=== PATIENT | female | born 1950 | race Hispanic/Latino ===

== ENCOUNTER 2024-06-13 16:13 | Emergency (ER) | payer OTHER ==
[~2024-06-13] VITALS: Ht 152.4 cm; Wt 49.9 kg
[2024-06-13 17:00] LABS: BASOPHILS % 0.3 % (0.0-1.0); EOSINOPHILS # (AUTO) 0.1 (0.0-0.4); EOSINOPHILS % 0.4 % (0.0-6.0); HEMATOCRIT 33.5 % (34.2-44.1); HEMOGLOBIN 11.3 g/dL (12.0-16.0); LYMPHOCYTES % 7.3 % (18.0-39.1); MEAN CORPUSCULAR HGB CONC 33.7 g/dL (31-35); MEAN CORPUSCULAR VOLUME 83.1 fL (81-99); MONOCYTES # (AUTO) 0.9 (0.2-0.8); MONOCYTES % 6.6 % (4.4-11.3); NEUTROPHILS # (AUTO) 11.8 (2.1-6.9); PLATELET COUNT 376 x10e3/uL (140-360); RED BLOOD COUNT 4.03 x10e6/uL (3.6-5.1); RED CELL DISTRIBUTION WIDTH 13.5 % (11.7-14.4); WHITE BLOOD COUNT 13.85 x10e3/uL (4.8-10.8)
[2024-06-13 17:06] LABS: BILIRUBIN,URINE NEGATIVE (NEGATIVE); CLARITY,URINE CLEAR (CLEAR); COLOR,URINE YELLOW (YELLOW); GLUCOSE, URINE 2+ (NEGATIVE); KETONES,URINE 2+ (NEGATIVE); LEUKOCYTE ESTERASE ,URINE NEGATIVE (NEGATIVE); NITRITE,URINE POSITIVE (NEGATIVE); PH,URINE 5.5 (5 - 7); PROTEIN,URINE DIPSTICK 2+ (NEGATIVE); URINE UROBILINOGEN 0.2 mg/dL (0.2 - 1)
[2024-06-13 17:09] LABS: BACTERIA,URINE MANY /HPF; EPITHELIAL CELLS,URINE MANY /LPF
[2024-06-13 17:23] LABS: ALBUMIN 3.9 g/dL (3.5-5.0); ALBUMIN/GLOBULIN RATIO 1.3 (0.8-2.0); ANION GAP 16.1 mmol/L (8-16); BILIRUBIN,TOTAL 0.4 mg/dL (0.2-1.2); CALCIUM 8.6 mg/dL (8.4-10.2); CREATININE, SERUM 0.84 mg/dL (0.57-1.11)
[2024-06-13 17:26] LABS: POTASSIUM 3.1 mmol/L (3.5-5.1)
[2024-06-13] MEDS: SODIUM CHLORIDE 0.9% 1000ML 1,000 ML IV STA (17:41)
[2024-06-13] MEDS: ACETAMINOPHEN 325 MG TAB PO STA (17:42)
[2024-06-13 18:10] VITALS: TEMP 98.5
[2024-06-13] MEDS: ONDANSETRON HCL INJ 2MG/ML 2ML 2 MG/ML VIAL IV PRN (18:17)
[2024-06-13 19:00] VITALS: PULSE 87; RESP 16; O2SAT 99
[2024-06-13] MEDS ORDERED: GLYCERIN1 EACH PR (19:29)
[2024-06-13] MEDS ORDERED: CIPRO500 MG PO (19:29)
== END 2024-06-13 19:49 | disposition home or self-care (01) ==
LOC: ER 16:27
DX: R30.0 Dysuria (principal); N39.0 Urinary tract infection, site not specified; K57.32 Diverticulitis of large intestine without perforation or abscess without bleeding; K59.00 Constipation, unspecified; R11.2 Nausea with vomiting, unspecified
CPT/HCPCS: 36415; 74177; 80053; 81001; 83605; 83690; 85025; 87040; 87086; 99284; J2405; J2543; J7030

== ENCOUNTER 2024-06-15 11:50 | Inpatient (IN) | payer MEDICARE, OTHER ==
[~2024-06-15] VITALS: Ht 152.4 cm; Wt 49.9 kg
[2024-06-15 11:50] VITALS: TEMP 98.2
[~2024-06-15 11:50] MED LIST: CIPRO500 MG PO; GLYCERIN1 EACH PR
[2024-06-15 12:52] LABS: BASOPHILS % 0.3 % (0.0-1.0); EOSINOPHILS % 0.3 % (0.0-6.0); HEMATOCRIT 34.4 % (34.2-44.1); HEMOGLOBIN 11.6 g/dL (12.0-16.0); LYMPHOCYTES # (AUTO) 0.6 (1.0-3.2); LYMPHOCYTES % 4.2 % (18.0-39.1); MEAN CORPUSCULAR HEMOGLOBIN 27.9 pg (28-32); MEAN CORPUSCULAR HGB CONC 33.7 g/dL (31-35); MEAN CORPUSCULAR VOLUME 82.7 fL (81-99); MONOCYTES # (AUTO) 0.8 (0.2-0.8); MONOCYTES % 6.1 % (4.4-11.3); NEUTROPHILS # (AUTO) 11.8 (2.1-6.9); NEUTROPHILS % 88.8 % (38.7-80.0); PLATELET COUNT 411 x10e3/uL (140-360); RED BLOOD COUNT 4.16 x10e6/uL (3.6-5.1); RED CELL DISTRIBUTION WIDTH 13.4 % (11.7-14.4); WHITE BLOOD COUNT 13.29 x10e3/uL (4.8-10.8)
[2024-06-15] MEDS: Morphine 2mg Syringe 2 MG/ML SYR IV ONE ×2 (12:55→16:40)
[2024-06-15] MEDS: SODIUM CHLORIDE 0.9% 1000ML 1,000 ML IV ONE (12:55)
[2024-06-15] MEDS: METOCLOPRAMIDE HCL 10 MG/2ML VIAL IV ONE (12:55)
[2024-06-15] MEDS ORDERED: IOPAMIDOL 370 MG/ML 100 ML INFUS..BTL INJ ONE (13:01)
[2024-06-15 13:06] LABS: ALBUMIN 3.9 g/dL (3.5-5.0); ALBUMIN/GLOBULIN RATIO 1.1 (0.8-2.0); ANION GAP 15.8 mmol/L (8-16); BILIRUBIN,TOTAL 0.3 mg/dL (0.2-1.2); CALCIUM 8.6 mg/dL (8.4-10.2); CREATININE, SERUM 0.78 mg/dL (0.57-1.11); TOTAL PROTEIN 7.3 g/dL (6.5-8.1)
[2024-06-15 13:09] LABS: POTASSIUM 2.8 mmol/L (3.5-5.1)
[2024-06-15] MEDS: KCL 20 MEQ PACKET/ ORAL SOLN PO ONE (13:33)
[2024-06-15] MEDS: POTASSIUM CHLORIDE 20MEQ/100ML 100 ML IV SCH (13:33)
[2024-06-15 14:16] LABS: COLOR,URINE YELLOW (YELLOW)
[2024-06-15 14:17] LABS: BILIRUBIN,URINE NEGATIVE (NEGATIVE); CLARITY,URINE CLOUDY (CLEAR); GLUCOSE, URINE 1+ (NEGATIVE); KETONES,URINE TRACE (NEGATIVE); LEUKOCYTE ESTERASE ,URINE NEGATIVE (NEGATIVE); NITRITE,URINE NEGATIVE (NEGATIVE); PH,URINE 6 (5 - 7); PROTEIN,URINE DIPSTICK NEGATIVE (NEGATIVE); URINE UROBILINOGEN 0.2 mg/dL (0.2 - 1)
[2024-06-15 14:18] LABS: BACTERIA,URINE FEW /HPF; EPITHELIAL CELLS,URINE FEW /LPF; RBC,URINE 21-50 /HPF (0-5)
[2024-06-15] MEDS: SODIUM CHLORIDE 0.9% 1000ML 1,000 ML IV SCH (16:40)
[2024-06-15] MEDS: METRONIDAZOLE 500MG/NS 100ML 100 ML IV SCH (17:12)
[2024-06-15] MEDS: CIPROFLOXACIN 400 MG/D5W 200ML 200 ML IV SCH (17:12)
[2024-06-15] MEDS ORDERED: ALBUTEROL/IPRATROPIUM 3 ML NEB NEB PRN (17:15)
[2024-06-15 17:27] VITALS: PULSE 91; RESP 18
[2024-06-15 18:42] VITALS: BP 148/83; PULSE 99; RESP 18; TEMP 98.4; O2SAT 98
[2024-06-15 20:00] VITALS: BP 140/82; PULSE 99; RESP 22; TEMP 97.7; O2SAT 99
[2024-06-15] MEDS ORDERED: LOSARTAN POTAS100 MG PO (20:34)
[2024-06-15] MEDS ORDERED: OZEMPIC2 MG/0.75 INJ (20:47)
[2024-06-15] MEDS ORDERED: ROSUVASTATIN CAL5 MG PO (20:47)
[2024-06-15] MEDS ORDERED: METHOCARBAMOL750 MG PO (20:47)
[2024-06-15] MEDS ORDERED: METOPROLOL TAR100 MG PO (20:47)
[2024-06-15] MEDS ORDERED: OMEPRAZOLE40 MG PO (20:47)
[2024-06-15] MEDS ORDERED: ONDANSETRON ODT4 MG PO (20:47)
[2024-06-15] MEDS: CALCIUM CARBONATE/VITAMIN D3 500 MG TAB PO SCH (22:24)
[2024-06-15] MEDS: ONDANSETRON HCL INJ 2MG/ML 2ML 2 MG/ML VIAL IV PRN (23:55)
[2024-06-15] MEDS: MELATONIN 3 MG TAB PO PRN (23:57)
[2024-06-16] VITALS: BP 150/76; PULSE 90; RESP 18; TEMP 97.7; O2SAT 99
[2024-06-16] MEDS: Morphine 2mg Syringe 2 MG/ML SYR IV PRN (00:09)
[2024-06-16 04:00] VITALS: BP 153/87; PULSE 89; RESP 18; TEMP 96.2; O2SAT 99
[2024-06-16 05:20] LABS: BASOPHILS # (AUTO) 0.1 (0.0-0.1); BASOPHILS % 0.6 % (0.0-1.0); EOSINOPHILS # (AUTO) 0.2 (0.0-0.4); EOSINOPHILS % 2.7 % (0.0-6.0); HEMATOCRIT 29.7 % (34.2-44.1); LYMPHOCYTES # (AUTO) 1.8 (1.0-3.2); LYMPHOCYTES % 21.3 % (18.0-39.1); MEAN CORPUSCULAR HEMOGLOBIN 27.9 pg (28-32); MEAN CORPUSCULAR HGB CONC 33.7 g/dL (31-35); MEAN CORPUSCULAR VOLUME 82.7 fL (81-99); MONOCYTES # (AUTO) 0.9 (0.2-0.8); MONOCYTES % 10.6 % (4.4-11.3); NEUTROPHILS # (AUTO) 5.6 (2.1-6.9); NEUTROPHILS % 64.6 % (38.7-80.0); PLATELET COUNT 323 x10e3/uL (140-360); RED BLOOD COUNT 3.59 x10e6/uL (3.6-5.1); RED CELL DISTRIBUTION WIDTH 13.5 % (11.7-14.4); WHITE BLOOD COUNT 8.64 x10e3/uL (4.8-10.8)
[2024-06-16 06:01] LABS: ALANINE AMINOTRANSFERASE 13 IU/L (0-55); ALBUMIN 3.1 g/dL (3.5-5.0); ALBUMIN/GLOBULIN RATIO 1.2 (0.8-2.0); ALKALINE PHOSPHATASE 57 IU/L (40-150); ANION GAP 14.2 mmol/L (8-16); BILIRUBIN,TOTAL 0.2 mg/dL (0.2-1.2); BLOOD UREA NITROGEN < 5 mg/dL (7-26); CALCIUM 7.6 mg/dL (8.4-10.2); CARBON DIOXIDE 18 mmol/L (22-29); CHLORIDE 105 mmol/L (98-107); CREATININE, SERUM 0.66 mg/dL (0.57-1.11); EST GLOMERULAR FILTRATION RATE 93 ML/MIN (>=60); GLUCOSE 87 mg/dL (74-118); SODIUM 134 mmol/L (136-145); TOTAL PROTEIN 5.7 g/dL (6.5-8.1)
[2024-06-16 06:02] LABS: BUN/CREATININE RATIO 8 (6-25); POTASSIUM 3.2 mmol/L (3.5-5.1)
[2024-06-16 08:00] VITALS: BP 147/76; PULSE 83; RESP 17; TEMP 97.7; O2SAT 98
[2024-06-16] MEDS: ACETAMINOPHEN 325 MG TAB PO PRN (12:39)
[2024-06-16 15:28] VITALS: BP 147/76; PULSE 83; RESP 17; TEMP 97.7; O2SAT 98
[2024-06-16 16:00] VITALS: BP 177/84; PULSE 90; RESP 18; TEMP 97.6; O2SAT 98
[2024-06-16] MEDS: ENOXAPARIN SOD INJ 40 MG/0.4 ML SYR SC SCH (17:00)
[2024-06-16 20:00] VITALS: BP 159/86; PULSE 93; RESP 20; TEMP 97.6; O2SAT 100
[2024-06-16] MEDS: Morphine 4mg INJECTION 4 MG/ML INJ IV PRN (21:35)
[2024-06-16] MEDS: PROMETHAZINE 12.5MG/ NACL 0.9% 12.5 MG/50 ML BAG IV PRN (21:37)
[2024-06-17] VITALS (10 sets, daily range): BP systolic 118–166; BP diastolic 61–96; PULSE 80–100; RESP 16–20; TEMP 97.6–98.6; O2SAT 96–100
[2024-06-17 01:23] LABS: % IRON SATURATION 12 % (15-50); IRON 28 ug/dL (50-170); TOTAL IRON BINDING CAPACITY 235 ug/dL (261-478); TRANSFERRIN 168 mg/dL (180-382)
[2024-06-17] MEDS: METOCLOPRAMIDE HCL 10 MG/2ML VIAL IV SCH (01:28)
[2024-06-17] MEDS: Morphine 4mg INJECTION 4 MG/ML INJ IV ONE (01:30)
[2024-06-17 07:21] LABS: ANION GAP 12.5 mmol/L (8-16); BLOOD UREA NITROGEN < 5 mg/dL (7-26); CALCIUM 7.7 mg/dL (8.4-10.2); CARBON DIOXIDE 20 mmol/L (22-29); CHLORIDE 104 mmol/L (98-107); CREATININE, SERUM 0.67 mg/dL (0.57-1.11); EST GLOMERULAR FILTRATION RATE 92 ML/MIN (>=60); GLUCOSE 79 mg/dL (74-118); SODIUM 134 mmol/L (136-145)
[2024-06-17 07:33] LABS: BUN/CREATININE RATIO 7 (6-25)
[2024-06-17] MEDS: ONDANSETRON HCL INJ 2MG/ML 2ML 2 MG/ML VIAL IV PRN (07:33)
[2024-06-17 07:36] LABS: POTASSIUM 2.5 mmol/L (3.5-5.1)
[2024-06-17] MEDS: POTASSIUM CHLORIDE 20MEQ/100ML 100 ML IV SCH (10:53)
[2024-06-17 12:59] LABS: MAGNESIUM 1.4 MG/DL (1.3-2.1); PHOSPHORUS 1.7 MG/DL (2.3-4.7)
[2024-06-17 13:05] LABS: POTASSIUM 2.8 mmol/L (3.5-5.1)
[2024-06-17] MEDS: POTASSIUM CHLORIDE 20MEQ/100ML 100 ML IV STA (18:11)
[2024-06-17] MEDS: POTASSIUM PHOSPHATE 15 MM in SODIUM CHLORIDE 0.9% 250ML 250 ML IV ONE (20:47)
[2024-06-17] MEDS: METOPROLOL TARTRATE INJ 1 MG/ML VIAL IV PRN (20:58)
[2024-06-18] VITALS (10 sets, daily range): BP systolic 143–160; BP diastolic 79–88; PULSE 95–109; RESP 16–20; TEMP 97.5–98.6; O2SAT 95–100
[2024-06-18 06:48] LABS: ANION GAP 13.9 mmol/L (8-16); BLOOD UREA NITROGEN < 5 mg/dL (7-26); CALCIUM 7.6 mg/dL (8.4-10.2); CARBON DIOXIDE 19 mmol/L (22-29); CHLORIDE 104 mmol/L (98-107); CREATININE, SERUM 0.66 mg/dL (0.57-1.11); EST GLOMERULAR FILTRATION RATE 93 ML/MIN (>=60); GLUCOSE 93 mg/dL (74-118); MAGNESIUM 1.3 MG/DL (1.3-2.1); PHOSPHORUS 1.9 MG/DL (2.3-4.7); SODIUM 134 mmol/L (136-145)
[2024-06-18 06:50] LABS: BUN/CREATININE RATIO 8 (6-25); POTASSIUM 2.9 mmol/L (3.5-5.1)
[2024-06-18 08:41] LABS: CLARITY,URINE CLEAR (CLEAR); COLOR,URINE YELLOW (YELLOW); GLUCOSE, URINE NEGATIVE (NEGATIVE); KETONES,URINE 1+ (NEGATIVE); LEUKOCYTE ESTERASE ,URINE NEGATIVE (NEGATIVE); NITRITE,URINE NEGATIVE (NEGATIVE); PH,URINE 5.5 (5 - 7); PROTEIN,URINE DIPSTICK NEGATIVE (NEGATIVE)
[2024-06-18 08:42] LABS: BACTERIA,URINE FEW /HPF; BILIRUBIN,URINE NEGATIVE (NEGATIVE); EPITHELIAL CELLS,URINE FEW /LPF; TRANSITIONAL EPI CELLS,URINE RARE; URINE UROBILINOGEN 0.2 mg/dL (0.2 - 1); WBC,URINE (MAN) 0-5 /HPF (0-5)
[2024-06-18] MEDS ORDERED: POTASSIUM PHOSPHATE 15 MM in SODIUM CHLORIDE 0.9% 250ML 250 ML IV ONE (08:45)
[2024-06-18] MEDS: NITROFURANTOIN MACROCRYSTALS 100 MG CAP PO SCH (09:58)
[2024-06-18] MEDS: POTASSIUM CHLORIDE 20 MEQ TAB CR PO STA (09:58)
[2024-06-18] MEDS: IRON SUCROSE 100 MG in SODIUM CHLORIDE 0.9% 100 ML IV SCH (09:58)
[2024-06-18] MEDS: POTASSIUM CHLORIDE 20 MEQ TAB CR PO ONE (10:00)
[2024-06-18] MEDS: POTASSIUM PHOSPHATE 15 MM in SODIUM CHLORIDE 0.9% 250ML 250 ML IV ONE (13:28)
[2024-06-19] VITALS (10 sets, daily range): BP systolic 144–160; BP diastolic 79–91; PULSE 87–99; RESP 18–21; TEMP 97.8–98.3; O2SAT 96–100
[2024-06-19] MEDS: PROMETHAZINE 12.5MG/ NACL 0.9% 12.5 MG/50 ML BAG IV PRN (00:07)
[2024-06-19 05:44] LABS: BLOOD UREA NITROGEN < 5 mg/dL (7-26); PHOSPHORUS 2.5 MG/DL (2.3-4.7)
[2024-06-19 06:06] LABS: ANION GAP 11.8 mmol/L (8-16); CALCIUM 7.1 mg/dL (8.4-10.2); CARBON DIOXIDE 23 mmol/L (22-29); CHLORIDE 106 mmol/L (98-107); CREATININE, SERUM 0.63 mg/dL (0.57-1.11); EST GLOMERULAR FILTRATION RATE 94 ML/MIN (>=60); GLUCOSE 86 mg/dL (74-118); MAGNESIUM 1.3 MG/DL (1.3-2.1); SODIUM 138 mmol/L (136-145)
[2024-06-19 06:45] LABS: BUN/CREATININE RATIO 8 (6-25)
[2024-06-19 06:46] LABS: POTASSIUM 2.8 mmol/L (3.5-5.1)
[2024-06-19] MEDS: POTASSIUM CHLORIDE 20 MEQ TAB CR PO ONE (09:12)
[2024-06-20] VITALS (11 sets, daily range): BP systolic 147–165; BP diastolic 83–94; PULSE 83–100; RESP 18–20; TEMP 98.1–98.6; O2SAT 95–100
[2024-06-20] MEDS ORDERED: DICYCLOMINE HCL 20 MG TAB ONE (03:34)
[2024-06-20] MEDS: DICYCLOMINE HCL 20 MG TAB PO STA (03:40)
[2024-06-20] MEDS: DICYCLOMINE HCL 20 MG TAB PO SCH (08:31)
[2024-06-20 08:34] LABS: ANION GAP 12.9 mmol/L (8-16); BLOOD UREA NITROGEN < 5 mg/dL (7-26); CALCIUM 7.6 mg/dL (8.4-10.2); CARBON DIOXIDE 22 mmol/L (22-29); CHLORIDE 103 mmol/L (98-107); CREATININE, SERUM 0.62 mg/dL (0.57-1.11); EST GLOMERULAR FILTRATION RATE 94 ML/MIN (>=60); GLUCOSE 93 mg/dL (74-118); MAGNESIUM 1.4 MG/DL (1.3-2.1); PHOSPHORUS 2.1 MG/DL (2.3-4.7); SODIUM 135 mmol/L (136-145)
[2024-06-20 08:36] LABS: BUN/CREATININE RATIO 8 (6-25)
[2024-06-20 08:37] LABS: POTASSIUM 2.9 mmol/L (3.5-5.1)
[2024-06-20] MEDS: POTASSIUM CHLORIDE 20 MEQ TAB CR PO SCH ×2 (10:57→16:45)
[2024-06-20] MEDS: POTASSIUM PHOSPHATE 15 MM in SODIUM CHLORIDE 0.9% 250ML 250 ML IV ONE (12:16)
[2024-06-20 14:06] LABS: MAGNESIUM 1.2 MG/DL (1.3-2.1); PHOSPHORUS 2.6 MG/DL (2.3-4.7); POTASSIUM 3.5 mmol/L (3.5-5.1)
[2024-06-20 19:28] LABS: WBC,FECAL (FECAL LACTOFERRIN) POSITIVE (NEGATIVE)
[2024-06-20 19:30] LABS: CDIFF AG QUIK CHEK **POSITIVE** (NEGATIVE); CDIFF TOX QUIK CHEK NEGATIVE (NEGATIVE)
[2024-06-21] VITALS (11 sets, daily range): BP systolic 141–171; BP diastolic 72–93; PULSE 76–95; RESP 17–19; TEMP 97.4–98.6; O2SAT 95–100
[2024-06-21] MEDS ORDERED: VANCOMYCIN HCL 125 MG CAPSULE PO SCH
[2024-06-21] MEDS: VANCOMYCIN HCL 125 MG CAPSULE PO SCH (00:06)
[2024-06-21] MEDS: MECLIZINE HCL 12.5 MG TAB PO ONE (00:07)
[2024-06-21 06:18] LABS: ANION GAP 12.3 mmol/L (8-16); BLOOD UREA NITROGEN < 5 mg/dL (7-26); CALCIUM 7.8 mg/dL (8.4-10.2); CARBON DIOXIDE 20 mmol/L (22-29); CHLORIDE 104 mmol/L (98-107); EST GLOMERULAR FILTRATION RATE 95 ML/MIN (>=60); GLUCOSE 95 mg/dL (74-118); MAGNESIUM 1.4 MG/DL (1.3-2.1); PHOSPHORUS 2.3 MG/DL (2.3-4.7); SODIUM 133 mmol/L (136-145)
[2024-06-21 06:20] LABS: BUN/CREATININE RATIO 8 (6-25); POTASSIUM 3.3 mmol/L (3.5-5.1)
[2024-06-21] MEDS: MECLIZINE HCL 12.5 MG TAB PO SCH (09:23)
[2024-06-21] MEDS: POTASSIUM CHLORIDE 20 MEQ TAB CR PO ONE (12:12)
[2024-06-21] MEDS ORDERED: CALCIUM CARBONATE 500 MG CHEWABLE TABS PO SCH (15:00)
[2024-06-21] MEDS: CEPACOL SORE THROAT LOZENGES PO PRN (17:36)
[2024-06-21] MEDS: POTASSIUM PHOSPHATE 15 MM in SODIUM CHLORIDE 0.9% 250ML 250 ML IV ONE (18:53)
[2024-06-22] VITALS (11 sets, daily range): BP systolic 131–160; BP diastolic 68–93; PULSE 85–95; RESP 17–18; TEMP 97.6–98.6; O2SAT 96–100
[2024-06-22 06:16] LABS: BASOPHILS % 0.6 % (0.0-1.0); EOSINOPHILS # (AUTO) 0.2 (0.0-0.4); HEMOGLOBIN 9.5 g/dL (12.0-16.0); LYMPHOCYTES # (AUTO) 1.5 (1.0-3.2); LYMPHOCYTES % 22.6 % (18.0-39.1); MEAN CORPUSCULAR HEMOGLOBIN 27.6 pg (28-32); MEAN CORPUSCULAR HGB CONC 32.8 g/dL (31-35); MEAN CORPUSCULAR VOLUME 84.3 fL (81-99); MONOCYTES # (AUTO) 0.9 (0.2-0.8); NEUTROPHILS % 59.9 % (38.7-80.0); PLATELET COUNT 382 x10e3/uL (140-360); RED BLOOD COUNT 3.44 x10e6/uL (3.6-5.1); RED CELL DISTRIBUTION WIDTH 14.7 % (11.7-14.4); WHITE BLOOD COUNT 6.64 x10e3/uL (4.8-10.8)
[2024-06-22 06:48] LABS: ALANINE AMINOTRANSFERASE 78 IU/L (0-55); ALBUMIN/GLOBULIN RATIO 1.3 (0.8-2.0); ALKALINE PHOSPHATASE 47 IU/L (40-150); ANION GAP 14.6 mmol/L (8-16); BILIRUBIN,TOTAL 0.3 mg/dL (0.2-1.2); BLOOD UREA NITROGEN < 5 mg/dL (7-26); CALCIUM 8.1 mg/dL (8.4-10.2); CARBON DIOXIDE 21 mmol/L (22-29); CHLORIDE 102 mmol/L (98-107); CREATININE, SERUM 0.63 mg/dL (0.57-1.11); EST GLOMERULAR FILTRATION RATE 94 ML/MIN (>=60); GLUCOSE 90 mg/dL (74-118); LIPASE 109 U/L (8-78); POTASSIUM 3.6 mmol/L (3.5-5.1); SODIUM 134 mmol/L (136-145); TOTAL PROTEIN 5.4 g/dL (6.5-8.1)
[2024-06-22 06:52] LABS: BUN/CREATININE RATIO 8 (6-25)
[2024-06-22] MEDS: MECLIZINE HCL 12.5 MG TAB PO SCH (09:14)
[2024-06-22] MEDS: POTASSIUM CHLORIDE 20 MEQ TAB CR PO ONE (11:33)
[2024-06-22] MEDS: CHOLESTYRAMINE 4 GM PACKET PO SCH (11:35)
[2024-06-23 03:03] VITALS: BP 150/84; PULSE 89; RESP 18; TEMP 97.9; O2SAT 100
[2024-06-23 06:34] VITALS: PULSE 90; RESP 20; O2SAT 96
[2024-06-23 09:20] VITALS: BP 156/91; PULSE 91; RESP 20; TEMP 98.2; O2SAT 99
[2024-06-23 09:58] VITALS: BP 156/91; PULSE 91; RESP 20; TEMP 98.2; O2SAT 99
[2024-06-23 10:14] LABS: ANION GAP 11.6 mmol/L (8-16); BLOOD UREA NITROGEN < 5 mg/dL (7-26); CALCIUM 8.6 mg/dL (8.4-10.2); CARBON DIOXIDE 21 mmol/L (22-29); CHLORIDE 100 mmol/L (98-107); CREATININE, SERUM 0.63 mg/dL (0.57-1.11); EST GLOMERULAR FILTRATION RATE 94 ML/MIN (>=60); GLUCOSE 126 mg/dL (74-118); POTASSIUM 3.6 mmol/L (3.5-5.1); SODIUM 129 mmol/L (136-145)
[2024-06-23 10:16] LABS: BUN/CREATININE RATIO 8 (6-25)
[2024-06-23 11:56] VITALS: BP 162/83; PULSE 92; RESP 18; TEMP 97.9; O2SAT 97
[2024-06-23] MEDS ORDERED: SORE THROAT LO1 EAC3 PO (12:49)
[2024-06-23] MEDS ORDERED: MECLIZINE HCL12.5 MG PO (12:49)
[2024-06-23] MEDS ORDERED: COLESTIPOL HCL1 GM PO (12:49)
[2024-06-23] MEDS ORDERED: POTASSIUM CHLO10 ME1 PO (12:49)
[2024-06-23] MEDS ORDERED: DICYCLOMINE HCL20 MG PO (12:49)
[2024-06-23] MEDS ORDERED: PANTOPRAZOLE SO40 MG PO (12:49)
[2024-06-23] MEDS ORDERED: OYSTER SHELL 51 EAC1 PO (12:49)
[2024-06-23] MEDS ORDERED: ONDANSETRON ODT4 MG PO (12:49)
[2024-06-23] MEDS ORDERED: REGLAN5 MG PO (12:49)
[2024-06-23] MEDS ORDERED: VANCOMYCIN HCL125 MG PO (12:49)
[2024-06-23] MEDS ORDERED: METRONIDAZOLE500 MG PO (12:49)
== END 2024-06-23 14:30 | disposition home or self-care (01) | DRG 392 ==
LOC: ER 12:02 → ERHOLD 15:17 → MED/SURG3 18:39 → OBSVTOIN 06-17 11:26
PROVIDERS: ADMIT Internal Medicine; ATTEND Internal Medicine
DX: K52.9 Noninfective gastroenteritis and colitis, unspecified (principal); N39.0 Urinary tract infection, site not specified; M80.08XA Age-related osteoporosis with current pathological fracture, vertebra(e), initial encounter for fracture; K57.32 Diverticulitis of large intestine without perforation or abscess without bleeding; A04.72 Enterocolitis due to Clostridium difficile, not specified as recurrent; D50.9 Iron deficiency anemia, unspecified; E86.0 Dehydration; E87.6 Hypokalemia; E11.9 Type 2 diabetes mellitus without complications; I10 Essential (primary) hypertension; F41.9 Anxiety disorder, unspecified; R11.10 Vomiting, unspecified; M19.90 Unspecified osteoarthritis, unspecified site; Z88.1 Allergy status to other antibiotic agents; Z88.2 Allergy status to sulfonamides; Z88.4 Allergy status to anesthetic agent; Z88.8 Allergy status to other drugs, medicaments and biological substances
CPT/HCPCS: 36415; 74177; 80048; 80053; 81001; 82607; 82746; 82948; 83540; 83605; 83630; 83690; 83735; 83993; 84100; 84132; 84466; 85025; 85045; 87324; 87449; 94799; 99252; 99284; G0378; J1650; J1756; J2270; J2405; J2470; J2550; J2765; J3480; J7030; J7050; Q9967

== ENCOUNTER → 2024-09-05 | Day surgery (SDC) | payer MEDICARE ==
[2024-09-01 10:15] LABS: BASOPHILS % 0.5 % (0.0-1.0); EOSINOPHILS # (AUTO) 0.1 (0.0-0.4); EOSINOPHILS % 2.4 % (0.0-6.0); HEMATOCRIT 36.4 % (34.2-44.1); HEMOGLOBIN 12.2 g/dL (12.0-16.0); LYMPHOCYTES # (AUTO) 1.3 (1.0-3.2); MEAN CORPUSCULAR HEMOGLOBIN 30.1 pg (28-32); MEAN CORPUSCULAR HGB CONC 33.5 g/dL (31-35); MEAN CORPUSCULAR VOLUME 89.9 fL (81-99); MONOCYTES # (AUTO) 0.4 (0.2-0.8); MONOCYTES % 6.6 % (4.4-11.3); NEUTROPHILS % 68.3 % (38.7-80.0); PLATELET COUNT 290 x10e3/uL (140-360); RED BLOOD COUNT 4.05 x10e6/uL (3.6-5.1); RED CELL DISTRIBUTION WIDTH 13.4 % (11.7-14.4); WHITE BLOOD COUNT 5.87 x10e3/uL (4.8-10.8)
[~2024-09-05] MED LIST changes: +AMLODIPINE BESYL5 MG PO; +COLESTIPOL HCL1 GM PO; +CYCLOSPORINE25 MG PO; +DICYCLOMINE HCL20 MG PO; +LEVOCETIRIZINE D5 MG; +LIDOCAINE HCL 2% LOCAL INJ 5 ML SDV VIAL INJ ONE; +LOSARTAN POTAS100 MG PO; +MECLIZINE HCL12.5 MG PO; +METHOCARBAMOL750 MG PO; +METOPROLOL TAR100 MG PO; +METRONIDAZOLE500 MG PO; +OMEPRAZOLE40 MG PO; +ONDANSETRON ODT4 MG PO; +OYSTER SHELL 51 EAC1 PO; +OZEMPIC2 MG/0.75 INJ; +PANTOPRAZOLE SO40 MG PO; +PEPCID20 MG PO; +POTASSIUM CHLO10 ME1 PO; +PROPOFOL IV EMULSION 50 ML IV ONE; +REGLAN5 MG PO; +ROSUVASTATIN CAL5 MG PO; +SORE THROAT LO1 EAC3 PO; +TYLENOL325 MG PO; +VANCOMYCIN HCL125 MG PO; +VITAMIN D250 MCG
[2024-09-05] MEDS: FENTANYL CITRATE/PF 100MCG/2 ML INJ ONE (14:16)
[2024-09-05] MEDS: ONDANSETRON HCL INJ 2MG/ML 2ML 2 MG/ML VIAL ONE (14:17)
[2024-09-05] MEDS: FAMOTIDINE 20 MG/2 ML VIAL IV ONE (14:18)
[2024-09-05] MEDS: LACTATED RINGER'S 1,000 ML ONE (14:18)
[2024-09-05 16:15] VITALS: TEMP 98.6
[2024-09-05 16:45] VITALS: BP 155/85; PULSE 66; RESP 16; O2SAT 98
== END | disposition home or self-care (01) ==
LOC: OR 12:25
PROVIDERS: ATTEND Internal Medicine Gastroenterology
DX: Z12.11 Encounter for screening for malignant neoplasm of colon (principal); D12.3 Benign neoplasm of transverse colon; K57.30 Diverticulosis of large intestine without perforation or abscess without bleeding; K64.8 Other hemorrhoids; Z86.0100 Personal history of colon polyps, unspecified; Z01.810 Encounter for preprocedural cardiovascular examination; Z01.812 Encounter for preprocedural laboratory examination; I10 Essential (primary) hypertension; E11.9 Type 2 diabetes mellitus without complications; M19.90 Unspecified osteoarthritis, unspecified site; K21.9 Gastro-esophageal reflux disease without esophagitis; Z88.1 Allergy status to other antibiotic agents; Z88.2 Allergy status to sulfonamides; Z88.4 Allergy status to anesthetic agent; Z79.899 Other long term (current) drug therapy; Z79.85 Long-term (current) use of injectable non-insulin antidiabetic drugs
CPT/HCPCS: 36415 ×2; 45385; 82948; 85025; 88305; 93005; J1308; J2405; J2704; J3010; J7121; 45378; J2003